=== PATIENT | female | born 1990 | race Hispanic/Latino ===

== ENCOUNTER 2017-03-27 21:46 | Emergency (ER) | payer OTHER ==
[~2017-03-27] VITALS: Ht 162.6 cm; Wt 96.6 kg
--- NOTE | 2017-03-28 03:12 | ED GI/GU/ABDOMINAL COMPLAINT ---
History of Present Illness General Chief Complaint: General Adult Stated Complaint: PT HAS HERNIA AND IS 39 WK Source: patient, family, old records Exam Limitations: no limitations Vital Signs & Intake/Output Vital Signs & Intake/Output Vital Signs Date Time Temp Pulse Resp B/P B/P Pulse O2 O2 Flow FiO2 Mean Ox Delivery Rate 03/28 0107 96.5 76 20 109/51 98 Room Air 03/27 2153 97.6 80 18 112/65 99 Room Air ED Intake and Output 03/28 0000 03/27 1200 Intake Total Output Total Balance Patient 213 lb Weight Weight Reported by Patient Measurement Method Allergies Coded Allergies: MDX - Aspirin (ASPIRIN) (Intermediate, FACIAL EDEMA 12/14/11) Triage Note: PT IS 39 WEEKS , PT TO ED C/O PAIN WITH UPPER ABDOMINAL HERNIA. STATES "I PICKED UP MY SON TOO MANY TIMES TODAY" PT STATES "IT HURT TOO MUCH TO PRESS DOWN ON IT" Triage Nurses Notes Reviewed? yes LMP (ages 10-50): 39 weeks aog ? y Is pt currently ? No Onset: Morning Duration: hour(s):, constant, continues in ED Timing: recent history Quality/Severity: aching, severe Location: epigastric Radiation: no radiation Activities at Onset: physical activity Prior Abdominal Problems: similar symptoms Past Sexual History: Unobtainable at this time Sexually Active: No Last Time You Were Sexual: greater than 2 months ago Sexual Orientation: Heterosexual Use of Protection: No Modifying Factors: Worsens With: movement, palpation. Associated Symptoms: nausea/vomiting HPI: 12 hours prior to admission patient was lifting her child several times with worsening of incisional hernia unable to be reduced with moderate to severe pain worse with palpation and movement associated with nausea. She denies fever chills vomiting diarrhea chest pain cough shortness of breath headache dysuria rash bleeding. Past History Travel History Traveled to [place] past 21 day No Medical History Any Pertinent Medical History? see below for history Neurological: migraine Respiratory: asthma Gastrointestinal: umbilical hernia Endocrine: hypoglycemia Tetanus Vaccine: 02/28/12 Surgical History Surgical History: non-contributory Psychosocial History What is your primary language Lao Tobacco Use: Never used ETOH Use: denies use Illicit Drug Use: denies illicit drug use Family History Hx Contributory? No Review of Systems Review of Systems Constitutional: Reports: no symptoms. EENTM: Reports: no symptoms. Respiratory: Reports: no symptoms. Cardiovascular: Reports: no symptoms. GI: Reports: see HPI, abdominal pain. Genitourinary: Reports: no symptoms. Musculoskeletal: Reports: no symptoms. Skin: Reports: no symptoms. Neurological/Psychological: Reports: no symptoms. Hematologic/Endocrine: Reports: no symptoms. Immunologic/Allergic: Reports: no symptoms. All Other Systems: Reviewed and Negative Physical Exam Physical Exam General Appearance: well developed/nourished, alert, awake, anxious, moderate distress, obese Head: atraumatic, normal appearance Eyes: Bilateral: normal appearance, PERRL, EOMI, normal inspection. Ears, Nose, Throat, Mouth: hearing grossly normal, moist mucous membrane Neck: normal inspection, supple, full range of motion, normal alignment Respiratory: normal breath sounds, chest non-tender, no respiratory distress, quiet respiration, lungs clear Cardiovascular: regular rate/rhythm, normal peripheral pulses, norml femoral pulses equa Peripheral Pulses: 4+ carotid (R), 4+ carotid (L) Gastrointestinal: normal bowel sounds, soft, no organomegaly, hernia (incisional ) Back: normal inspection, normal range of motion Extremities: normal range of motion, no ligament instability Neurologic/Psych: no motor/sensory deficits, awake, alert, oriented x 3, normal gait, normal mood/affect, salt cutter II-XII nml as tested Skin: intact, normal color, warm/dry Core Measures ACS in differential dx? No Severe Sepsis Present: No Septic Shock Present: No Progress Differential Diagnosis: hernia Plan of Care: Unable to reduce hernia. Surgery paged. Hernia reduced with increased analgesia Initial ED EKG: none Departure Departure Time of Disposition: 309 Disposition: HOME OR SELF CARE Condition: Stable Clinical Impression Primary Impression: Incisional hernia, without obstruction or gangrene Referrals: VAMSHI HERNADEZ MD (PCP/Family) Additional Instructions: Follow up with your doctors at [facility] Departure Forms: Customer Survey General Discharge Information
[2017-03-28 03:15] VITALS: BP 103/50
== END 2017-03-28 03:33 ==
LOC: ERH 21:46
DX: O99.613 Diseases of the digestive system complicating pregnancy, third trimester (principal); K43.2 Incisional hernia without obstruction or gangrene; Z3A.39 39 weeks gestation of pregnancy
CPT/HCPCS: 96374; 96375; J2405